=== PATIENT | female | born 1995 | race Asian ===

== ENCOUNTER 2017-05-22 21:46 | Emergency (ER) | payer OTHER ==
[~2017-05-22] VITALS: Ht 162.6 cm; Wt 69.2 kg
[2017-05-22 22:04] VITALS: TEMP 37.4; Ht 162.6 cm; Wt 69.2 kg
[2017-05-22] MEDS ORDERED: [UNRECOGNIZED DRUG - REMARK] PO (22:36)
--- NOTE | 2017-05-22 23:12 | DIAGNOSTIC IMAGING REPORT ---
CHEST 2 VIEWS ROUTINE HISTORY: 21 years-old Female cough, left back pain acute cough with left-sided back pain COMPARISON: None available TECHNIQUE: Frontal and lateral views of the chest FINDINGS: Cardiomediastinal and hilar silhouettes are within normal limits. No pneumothorax, pleural effusion or focal airspace consolidation. No overt pulmonary edema. There is convex right curvature of the midthoracic spine of 25 degrees measured from T5-T9. IMPRESSION: 1. No acute cardiopulmonary process. 2. 25 degrees dextroscoliosis of the midthoracic spine. The above report was generated using voice recognition software. It may contain grammatical, syntax or spelling errors. Electronically signed by: Tyler Smallwood M.D. 05/22/2017 11:11 PM Dictated Date/Time: 05/22/2017 11:09 PM
[2017-05-22] MEDS ORDERED: BENZ1CAP90 PO (23:39)
[2017-05-22] MEDS ORDERED: HYCODAN 60ML BOTTLE HOMEPACK PO ONE (23:45)
--- NOTE | 2017-05-22 23:51 | EMERGENCY ROOM VISIT NOTE ---
History First contact with patient: 22:35 Chief Complaint: COUGH Stated Complaint: COUGHING, BACK PAIN Nursing Triage Summary: c/o a cough and and left upper back /rib pain with coughing. History of Present Illness The patient is a 21 year old female who presents to the Emergency Room with complaints of cough and left-sided back pain. The patient reports she has had a cough for the past 2 weeks. She has developed some pain in the left back when she coughs. She denies pain at rest. She denies any associated chest pain or shortness of breath. She rates her discomfort a 9/10. The patient is not a smoker. She does not take control pills. She denies recent travel. She denies history of blood clots. She reports she has had a mild sore throat and runny nose as well. She denies any fevers or hemoptysis. Review of Systems A complete 10 point review of systems was reviewed with the patient with pertinent positives and negatives as per history of present illness. All else were negative. Social History Smoking Status: Never Smoker Current/Historical Medications Scheduled PRN Benzonatate (Tessalon Perles), 200 MG PO TID PRN for Cough [Unknown Cough Med], 1 TAB PO Q12 PRN for Cough Physical Exam Vital Signs Date Time Temp Pulse Resp B/P (MAP) Pulse Ox O2 Delivery O2 Flow Rate FiO2 05/22/17 23:52 86 20 126/81 97 Room Air 05/22/17 22:43 Room Air 05/22/17 22:04 37.4 85 20 110/72 96 Room Air Physical Exam VITALS: Vitals are noted on the nurse's note and reviewed by myself. Vital signs stable. GENERAL: This is a 21-year-old female, in no acute distress, nondiaphoretic, well-developed well-nourished. SKIN: The skin was without rashes. EARS: External auditory canals clear, tympanic membranes pearly hernandez without erythema or effusion bilaterally. EYES: Pupils equal round and reactive to light and accommodation. NOSE: Patent, turbinates without inflammation or discharge. No sinus tenderness. MOUTH: Mucous membranes moist. Tonsils are not enlarged. Pharynx without erythema or exudate. NECK: Supple without nuchal rigidity. No lymphadenopathy. HEART: Regular rate and rhythm without murmurs gallops or rubs. LUNGS: Clear to auscultation bilaterally without wheezes, rales or rhonchi. No retractions or accessory muscle use. MUSCULOSKELETAL: There is reproducible tenderness to palpation of the left posterior lower ribs. NEURO: Patient was alert and oriented to person place and time. Medical Decision & Procedures ER Provider Diagnostic Interpretation: CHEST 2 VIEWS ROUTINE HISTORY: 21 years-old Female cough, left back pain acute cough with left-sided back pain COMPARISON: None available TECHNIQUE: Frontal and lateral views of the chest FINDINGS: Cardiomediastinal and hilar silhouettes are within normal limits. No pneumothorax, pleural effusion or focal airspace consolidation. No overt pulmonary edema. There is convex right curvature of the midthoracic spine of 25 degrees measured from T5-T9. IMPRESSION: 1. No acute cardiopulmonary process. 2. 25 degrees dextroscoliosis of the midthoracic spine. Medications Administered Medications (Trade) Dose Ordered Sig/Rey Route Start Time Stop Time Status Last Admin Dose Admin Hydrocodone Bit/ Homatropine Methylb (Hycodan Elix Homepack 5/1.5MG/ 5ML) 1 homepack UD ONCE PO 05/22/17 23:45 05/22/17 23:46 DC 05/22/17 23:46 1 HOMEPACK Medical Decision Differential diagnosis includes pneumonia, upper respiratory infection, pulmonary embolism, rib strain, rib fracture, among others. The patient is a 21-year-old female who presents today complaining of cough and left posterior rib pain. Pain is reproducible to palpation. Chest x-ray was read by radiology with no acute findings. I feel the patient's pain is likely musculoskeletal secondary to coughing. She has no shortness of breath or hemoptysis. PE is unlikely and PERC is negative. She is not tachycardic or hypoxic. She was given a prescription for tessalon perles and a home pack of Hycodan. She was advised to follow up closely with a primary care provider and return here for any worsening or new/concerning symptoms. She verbalized understanding and was discharged home in good condition. Medication Reconcilliation Current Medication List: was personally reviewed by me Blood Pressure Screening Patient's blood pressure: Normal blood pressure Impression Primary Impression: Upper respiratory infection Additional Impression: Rib pain on left side Departure Information Dispostion Home / Self-Care Condition GOOD Prescriptions Benzonatate (Tessalon Perles) 200 Mg Cap 200 MG PO TID Y for Cough for 7 Days, #21 CAP Prov: Miguelina Harrington ., STEFANIE 05/22/17 Referrals No Doctor, Assigned (PCP) Patient Instructions My [facility] Additional Instructions Use the Tessalon Perles up to 3 times daily as needed for cough. You may use the Hycodan cough syrup, 5 mL every 4-6 hours as needed for cough. This medication may make you drowsy, so you should take it at night. For pain control, you can use the following [id number] medicines (if >12 yo): - Regular strength (200 mg/tab) Advil (ibuprofen) 3 tabs every 6 hours as needed. Do not exceed a dose of 3200 mg per day. You should follow-up with a primary care provider this week for further evaluation. Return to the emergency department with shortness of breath, worsening pain, coughing up blood, passing out, or any other new/concerning symptoms. Problem Qualifiers Primary Impression: Upper respiratory infection URI type: unspecified URI Qualified Codes: J06.9 - Acute upper respiratory infection, unspecified
[2017-05-22 23:52] VITALS: BP 126/81; PULSE 86; O2SAT 97
== END 2017-05-22 23:58 | disposition home or self-care (01) ==
LOC: EDSEX 21:48 → C.EDB 21:48 → C.EDA 23:58
DX: J06.9 Acute upper respiratory infection, unspecified (principal); R07.81 Pleurodynia